=== PATIENT | female | born 1990 | race Caucasian/White ===

== ENCOUNTER 2017-01-21 17:41 | Emergency (ER) | payer OTHER ==
--- NOTE | ~2017-01-21 | US106 ---
[facility] A Service of [facility] RADIOLOGY TEXT RESULTS PATIENT: CHIKA SMITH LOCATION: [facility] : [birth year] UNIT #: [id number] AGE: [address]: Fely Emery APRN SEX: F ORDER DR: [id number] [facility] [address] [place], [place] [address] [id number] MR#: [id number] #: [id number] NAME: CHIKA SMITH : 1990 SEX: F STUDY DATE/TIME: 01/21/2017 17:55 UNIT: [facility] ROOM: STUDY DESCRIPTION: US Preg Uterus Transvaginal Attending Physician: Fely Emery A.P.R.N. Ordering Physician: Ed Liam Kenny M.D. Primary Care Physician: No Primary Care Physician MEDICAL IMAGING REPORT This report is preliminary unless electronic signature is present EXAM Pelvic ultrasound, 01/21. INDICATIONS Pelvic pain for 2 days with no discharge or bleeding. Beta HCG value is unavailable. FINDINGS Transvaginal imaging is performed of the pelvis in multiple planes. No comparisons. There is a single intrauterine gestation with a yolk sac and a pole. Heart rate is confirmed by M-mode Doppler at 141 beats per minute. The uterus is unremarkable. The ovaries cannot be identified. There is no free fluid. Estimated age by ultrasound measurement, including crown-rump length and gestational sac diameter, is 8 weeks 1 day for an estimated date of confinement of 09/02/2017. IMPRESSION Living intrauterine at about 8 weeks 1 day gestational age by ultrasound measurement. Heart rate 141 beats per minute. The ovaries cannot be identified. No free fluid. Dictated by... Cabrera Almazan Jr., M.D. THIS IS AN ELECTRONICALLY VERIFIED REPORT Cabrera Almazan Jr., M.D. at 01/22/2017 1:42 PM KALINA/bibi TD: 01/22/2017 10:09 JOB #: [id number] [facility] A Service of [facility] RADIOLOGY TEXT RESULTS PATIENT: CHIKA SMITH LOCATION: [facility] : [birth year] UNIT #: [id number] AGE: [address]: Fely Emery APRN SEX: F ORDER DR: MEDICAL IMAGING REPORT Page 1 of 1 COPY
[2017-01-21 16:18] LABS: URINE SOURCE CLEAN CATCH
[2017-01-21 16:26] LABS: BASOPHIL% 0.3 % (0-2.5); EOSINOPHIL# 0.2 X10e3 (0-0.7); EOSINOPHIL% 1.2 % (0.0-7.0); HEMATOCRIT 37.8 % (35.0-45.0); HEMOGLOBIN 12.2 gm/dL (12.0-16.0); LYMPHOCYTE# 2.9 X10e3 (1.0-3.5); LYMPHOCYTE% 20.6 % (17.0-45.0); MEAN CELL VOLUME 87.7 FL (83-96); MEAN CORPUSCULAR HEMOGLOBIN 28.2 PG (28-34); MEAN CORPUSCULAR HGB CONC 32.2 g/dL (30-36); MEAN PLATELET VOLUME 8.7 FL (6.5-11.5); MONOCYTE# 0.7 X10e3 (0-1.0); MONOCYTE% 5.3 % (3.0-12.0); NEUTROPHIL# 10.2 X10e3 (1.5-7.1); NEUTROPHIL% 72.6 % (40-75); PLATELET COUNT 282 X10e3 (140-420); RED BLOOD COUNT 4.31 X10e (3.90-5.30); RED CELL DISTRIBUTION WIDTH 12.8 % (11.0-15.5); WHITE BLOOD COUNT 14.1 X10e3 (4.0-10.5)
[2017-01-21 16:27] LABS: URINE APPEARANCE CLOUDY; URINE BILIRUBIN NEG (NEG); URINE BLOOD 2+ (NEG); URINE COLOR YELLOW; URINE GLUCOSE NEG (NEG); URINE KETONE NEG (NEG); URINE LEUKOCYTE ESTERASE 2+ (NEG); URINE NITRATE NEG (NEG); URINE PROTEIN NEG (NEG); URINE SPECIFIC GRAVITY 1.018 (1.003-1.035); URINE UROBILINOGEN 0.2 MG/DL (NEG)
[2017-01-21 16:28] LABS: DIFF IND NO
[2017-01-21 16:30] LABS: CULTURE INDICATED? YES; URINE BACTERIA AUWI 2+ (NEGATIVE); URINE SQUAMOUS EPITHELIAL CELL MOD /[HPF]
[2017-01-21 16:52] LABS: BLOOD UREA NITROGEN 9 mg/dL (9-23); CALCIUM SERUM 9.1 mg/dL (8.4-10.2); CARBON DIOXIDE 25 mmol/L (22-31); CHLORIDE 99 mmol/L (100-111); CREATININE SERUM 0.4 mg/dL (0.6-1.4); GLOM FILT RATE Estimated ABOVE60 mL/min (>60); GLUCOSE FASTING 89 mg/dL (70-110); POTASSIUM 3.5 mmol/L (3.5-5.1); SODIUM 134 mmol/L (135-145)
[2017-01-24 02:26] LABS: CHLAMYDIA TRACH Not Detected (Not Detected); N GONOR Not Detected (Not Detected)
== END 2017-01-21 18:55 | disposition home or self-care (01) ==
LOC: CFTX 17:41
PROVIDERS: Nurse Practitioner
DX: O23.11 Infections of bladder in pregnancy, first trimester (principal); R10.2 Pelvic and perineal pain; Z3A.01 Less than 8 weeks gestation of pregnancy
CPT/HCPCS: 36415; 76817; 80048; 81003; 84702; 84703; 85025; 86900; 86901; 87086; 87491; 87591; 87808; 87905; 99284

== ENCOUNTER 2017-02-27 23:31 | Emergency (ER) | payer OTHER ==
[2017-02-27 23:40] LABS: URINE SOURCE CLEAN CATCH
[2017-02-27 23:50] LABS: URINE APPEARANCE CLEAR; URINE BILIRUBIN NEG (NEG); URINE BLOOD TRACE (NEG); URINE COLOR YELLOW; URINE GLUCOSE NEG (NEG); URINE KETONE NEG (NEG); URINE LEUKOCYTE ESTERASE NEG (NEG); URINE NITRATE NEG (NEG); URINE PH 5.5 (5-8); URINE PROTEIN NEG (NEG); URINE SPECIFIC GRAVITY 1.031 (1.003-1.035)
[2017-02-27 23:51] LABS: URBCS1 AUWI 0-2 /[HPF] (0-2); URINE BACTERIA AUWI 2+ (NEGATIVE); URINE SQUAMOUS EPITHELIAL CELL OCC /[HPF]
== END 2017-02-28 00:40 | disposition home or self-care (01) ==
LOC: CED 23:31
PROVIDERS: Emergency Medicine
DX: O9A.211 Injury, poisoning and certain other consequences of external causes complicating pregnancy, first trimester (principal); O23.11 Infections of bladder in pregnancy, first trimester; S70.01XA Contusion of right hip, initial encounter; Z3A.13 13 weeks gestation of pregnancy
CPT/HCPCS: 81003; 99284

== ENCOUNTER 2017-05-04 01:27 | Emergency (ER) | payer OTHER ==
[2017-05-04 03:22] LABS: URINE APPEARANCE CLEAR; URINE BILIRUBIN NEG (NEG); URINE BLOOD TRACE (NEG); URINE COLOR YELLOW; URINE GLUCOSE NEG (NEG); URINE KETONE NEG (NEG); URINE LEUKOCYTE ESTERASE NEG (NEG); URINE NITRATE NEG (NEG); URINE PROTEIN NEG (NEG); URINE UROBILINOGEN 0.2 MG/DL (NEG)
[2017-05-04 03:24] LABS: CULTURE INDICATED? YES; URINE BACTERIA AUWI 2+ (NEGATIVE); URINE SQUAMOUS EPITHELIAL CELL OCC /[HPF]
== END 2017-05-04 04:08 | disposition home or self-care (01) ==
LOC: CED 01:27
PROVIDERS: Nurse Practitioner Family
DX: O99.89 Other specified diseases and conditions complicating pregnancy, childbirth and the puerperium (principal); R82.71 Bacteriuria
CPT/HCPCS: 81003; 87086; 99284